=== PATIENT | male | born 1995 | race Caucasian/White ===

== ENCOUNTER 2024-09-10 11:38 | Emergency (ER) | payer MEDICARE, SELFPAY ==
--- OUTSIDE RECORDS SUMMARY | 2024-09-10 11:41 | XMS_ITS | Clinical Summary ---
Author Organization [facility] Address [address] [place] [address] Phone Care Team Providers Care Sticker Hand Name Role Phone Julian Levine DO Primary Care Provider Social History Tobacco Use Types Packs/Day Years Used Date Smoking Tobacco: Never Assessed Sex and Gender Information Value Date Recorded Sex Assigned at Not on file Legal Sex Male 12:01 PM CDT Gender Identity Not on file Sexual Orientation Not on file Plan of Treatment Not on file Insurance MEDICAID [employer] Care Teams Sticker Hand Relationship Specialty Start Date End Date Julian Levine DO [address] [place] [id number] PCP - General Internal Medicine 01/06/23
--- OUTSIDE RECORDS SUMMARY | 2024-09-10 11:41 | XMS_ITS | Continuity of Care Document ---
Author Organization [facility] Address [address] [place] [address] Phone Care Team Providers Care Vice President & General Manager [employer] Name Role Phone Parker French MD Unavailable Unavailable Allergies, Adverse Reactions, Alerts Substance Reaction Status Criticality TETRACYCLINE HCL Active No Informat ion Medications Medication Instructions Dosage Effective Dates (start - stop) Status Comments hydrocortisone 1 % topical ointment apply by topical route 2 times every day to the affected area(s) - Active Claritin-D 24 Hour 10 mg-240 mg tablet,extended release take 1 tablet by oral route every day 1.00 tablet - Active Procedures Procedure Date OFFICE/OUTPATIENT VISIT, EST OFFICE/OUTPATIENT VISIT, EST OFFICE/OUTPATIENT VISIT, EST OFFICE/OUTPATIENT VISIT, EST Advance Directives Directive Yes / No Effective Date File Name No Information Encounters Encounter Description Practice Location Reason(s) For Visit Diagnoses Date Provider Providers Copied on Encounter [facility], [address] [place] [address], [facility], [phone] [facility] No Information 7 Gillian Canales. [address] [place] [address], [facility], [place]. tel:[phone] OFFICE/OUTPAT IENT VISIT, EST [facility], [address] [place] [address], [facility], tel:[phone] [place] RASH ALL OVER (chief complaint) Dermatitis 5 Luis Bryant. [address] [place] [address], [facility], [place]. tel:[phone] OFFICE/OUTPAT IENT VISIT, [facility], [address] [place] [address] [phone] Deborah Flu-like symptoms (chief complaint) Upper Respiratory Infection, Acute 5 No Information OFFICE/OUTPAT IENT VISIT, [facility], [address] [place] [address] [phone] Deborah ingrown toe nail (chief complaint) Ingrown nail 0 4 No Information OFFICE/OUTPAT IENT VISIT, [facility], [address] [place] [address], [facility], [phone] Deborah left great toe infection (chief complaint) Ingrown nail 4 Amira Lewis. [address] [place] [address]. [phone] [facility], [address] [place] [address], tel:[phone] Deborah Hit in face basbetball hoop (chief complaint) Contusion of face 2 Longmeyer Iram. [address] [place] [address]. tel:[phone] Family History Family Member Type Diagnosis Age At Onset Mother Problem (finding) migraine Father Problem (finding) diabetes melli tus in first degree relative Mother Problem (finding) hypertension Father Problem (finding) Schizophrenia Mother Problem (finding) diabetes melli tus in first degree relative Mother Problem (finding) [place] Payers Payer name Insurance type Covered alliance party ID Authoriza tion(s) [facility] [id number] Social History Type Description Quantity Date Captured Comments Sex Male Smoking Status No Information Chief Complaint And Reason For Visit No Information Reason For Referral Reason For Referral No Information History Of Present Illness Encounter Date Complaint History Of Prese nt Illness RASH ALL OVER The symptoms beg an 3 days ago. Pt has red itchy rash on both arms and right leg. Flu-like symptoms The symptoms b kat 2 months ago. The patient presents with abdominal pain, diarrhea, headache, nausea and runny nose. The patient does not present with chills, cough, earache or fever. Additional information: Mother states pt is having same symptoms as she is and thinks spouse is poisoning them. ( As per my history pt did not co any particular symptoms. Pt has already been following up with his counselor and pschiatrist.). ingrown toe nail The location is left great toe. Is being treated for ingorwn left great toenail, states Christy had him on antibiotics and soaking toe 2 times daily. Pt states he has not did soak for a few days, when pt took off bandaid just now, nail came off. left great toe infection The sym ptoms began 1 week ago. Pt's mother states she does not know how long pt's toenail has been ingrown L great toe. Toe drains, but patient says it doesn't hurt. Functional Status Date Functional Assessmen t No Information Instructions Date Instruction Additional Infor jarek If rash spreads or d oes not resolve return to clinic Related to Dermatitis Wash area twice jose manuel y and apply ointment to rash Related to Dermatitis Educated that antibi otics are not prescribed for viral infections. Related to Upper Respiratory Infection, Acute appeared to be infec dorothy, will do antibiotic and fu in one week. Related to Ingrown nail Keflex antibiotic.Wa rm soaks. Tylenol or ibuprofen as needed for pain.Follow up with primary MD in a few days for toenail removal. Related to Ingrown nail see plan Related to Ingro wn nail Assessments Type Assessment Date No Information Patient Care Teams Name Effective Dates (start - stop) Status Members No Information
[2024-09-10 12:24] VITALS: BP 123/78; PULSE 95; RESP 18; TEMP 36.5; O2SAT 99
--- OUTSIDE RECORDS SUMMARY | 2024-09-10 12:34 | XMS_ITS | Clinical Summary ---
Author Organization [facility] Address [address] [place] [address] Phone Care Team Providers Care Gas Load Dispatcher Name Role Phone Julian Levine DO Primary [...] Insurance MEDICAID [employer] Care Teams Gas Load Dispatcher Relationship Specialty Start Date End Date Julian Levine DO [address] [place] [id number] PCP - General Internal Medicine 01/06/23
--- OUTSIDE RECORDS SUMMARY | 2024-09-10 12:34 | XMS_ITS | Continuity of Care Document ---
Author Organization [facility] Address [address] [place] [address] Phone Care Team Providers Care Edge Bander Hand Name Role Phone Parker French MD Unavailable [...] Diagnoses Date Provider Providers Copied on Encounter [facility], [address] [place] [address], [facility], [phone] [facility] No Information 7 Gillian Canales. [address] [place] [address], [facility], [place]. tel:[phone] OFFICE/OUTPAT IENT VISIT, EST [facility], [address] [place] [address], [facility], tel:[phone] [place] RASH ALL OVER (chief complaint) Dermatitis 5 Luis Bryant. [address] [place] [address], [facility], [place]. tel:[phone] OFFICE/OUTPAT IENT VISIT, [facility], [address] [place] [address] [phone] Deborah Flu-like symptoms (chief complaint) Upper Respiratory Infection, Acute 5 No Information OFFICE/OUTPAT IENT VISIT, [facility], [address] [place] [address] [phone] Deborah ingrown toe nail (chief complaint) Ingrown nail 0 4 No Information OFFICE/OUTPAT IENT VISIT, [facility], [address] [place] [address], [facility], [phone] Deborah left great toe infection (chief complaint) Ingrown nail 4 Amira Lewis. [address] [place] [address]. [phone] [facility], [address] [place] [address], tel:[phone] Deborah Hit in face basbetball hoop (chief complaint) Contusion of face 2 Long[place] Iram. [address] [place] [address]. tel:[phone] Family History Family Member Type Diagnosis Age At Onset Mother Problem (finding) migraine Father Problem (finding) diabetes melli tus in first degree relative Mother Problem (finding) hypertension Father Problem (finding) Schizophrenia Mother Problem (finding) diabetes melli tus in first degree relative Mother Problem (finding) [place] Payers Payer name Insurance type Covered alliance party ID Authoriza tion(s) [facility] [id number] Social History Type Description Quantity Date Captured [...] Information Instructions Date Instruction Additional Infor jarek Wash area twice jose manuel y and apply ointment to rash Related to Dermatitis If rash spreads or d oes not resolve return to clinic Related to Dermatitis Educated that antibi otics [...]
--- NOTE | 2024-09-10 12:45 | ED.GENADULT ---
HPI - General Adult General Chief complaint: Unspecified Stated complaint: foot infection Time Seen by Provider: 09/10/24 12:20 History of Present Illness HPI narrative: 29-year-old male presents to the emergency department for evaluation for chronic fungal infections to bilateral toes. Patient states the infection in his left great toe has become more painful. Patient does have some mild erythema on the distal aspect of the left great toe. Patient reports he has had prior evaluation by podiatry for this issue Related Data Allergies Allergy/AdvReac Type Severity Reaction Status Date / Time risperidone Allergy Unknown Unknown Verified 09/10/24 12:31 Review of Systems Review of Systems: All systems reviewed & are unremarkable except as noted in HPI and below Exam Narrative: APPEARANCE: Well appearing, no pain, no distress, well-nourished. HEAD: normocephalic, atraumatic. EYES: PERRLA/EOMI, conjunctivae clear. NOSE: Normal no drainage EARS:TMS clear with good light reflex. THROAT: Pharynx clear, no exudate. NECK: Supple. No adenopathy, no masses. RESPIRATORY: Airway patent, respirations nonlabored. Clear to auscultation bilaterally, no rales, rhonchi, wheezing. CARDIOVASCULAR: Regular rate and rhythm without murmurs rubs or gallops. ABDOMINAL: Soft, nontender, nondistended, normal bowel sounds MUSCULOSKELETAL: Fungal infections of both the nails of both great toes. Does have some tenderness to palpation left great toe. Mild erythema with no significant cellulitis. NEURO: Alert. Cranial nerves II through XII intact. Good gait. Good coordination SKIN: Warm, dry. Normal Color Course Vital Signs Vital signs: Vital Signs Temperature 97.7 F 09/10/24 12:24 Pulse Rate 95 09/10/24 12:24 Respiratory Rate 18 09/10/24 12:24 Blood Pressure 123/78 09/10/24 12:24 Pulse Oximetry 99 09/10/24 12:24 Temperature 97.7 F 09/10/24 12:24 Pulse Rate 95 09/10/24 12:24 Respiratory Rate 18 09/10/24 12:24 Blood Pressure 123/78 09/10/24 12:24 Pulse Oximetry 99 09/10/24 12:24 Medical Decision Making [facility] Narrative Medical decision making narrative: 29-year-old male presents to the emergency department for evaluation for worsening left great toe pain. Patient does have a chronic fungal infection but patient is being started on antibiotics for possible underlying bacterial infection. Patient will be provided follow-up with the Podiatry. Differential Diagnosis Differential Diagnosis: Cared Vital Signs Vital Signs: Vital Signs Temperature 97.7 F 09/10/24 12:24 Pulse Rate 95 09/10/24 12:24 Respiratory Rate 18 09/10/24 12:24 Blood Pressure 123/78 09/10/24 12:24 Pulse Oximetry 99 09/10/24 12:24 Temperature 97.7 F 09/10/24 12:24 Pulse Rate 95 09/10/24 12:24 Respiratory Rate 18 09/10/24 12:24 Blood Pressure 123/78 09/10/24 12:24 Pulse Oximetry 99 09/10/24 12:24 Discharge Plan Discharge Clinical Impression: Fungal infection of toenail Patient Disposition: Home Condition: Stable Instructions: Antibiotic Form, Keratitis (ED) Additional Instructions: Antibiotic as directed until completed. Have close follow-up with Podiatry. Patient Language: Divehi Prescriptions: New cephalexin 500 mg capsule 500 mg PO Q12H 7 Days Qty: 14 0RF Follow-up/Referrals: Trav Bragg Jr., NHAN [Physician] - PHYSICIAN,CALL OR CONTACT CENTRE MANAGER [Primary Care Provider] -
[2024-09-10] MEDS: CEPHALEXIN 500 MG CAPSULE PO (12:54)
== END 2024-09-10 13:02 | disposition home or self-care (01) ==
PROVIDERS: Emergency Provider Emergency Medicine
DX: B35.3 Tinea pedis (principal)
CPT/HCPCS: 99283; A9270